=== PATIENT | female | born 1965 | race Caucasian/White ===

== ENCOUNTER 2016-03-23 09:40 | Inpatient (IN) | payer MEDICARE, OTHER ==
--- NOTE | 2016-03-23 06:36 | P.GSHP ---
History of Present Illness H&P Date: 03/23/16 DATE OF SERVICE: 03/23/2016. CHIEF COMPLAINT: Bariatric assessment. HISTORY OF PRESENT ILLNESS: Elliot Swann is a 50-year-old female who initially presents to the bariatric program over a year ago. For her height of 5 foot 5, her ideal body weight is 149 pounds. Her heaviest weight was 270 pounds. Since her band removal, she has moderately regained weight of over 70+ pounds. Today she comes in weighing 257 pounds. She reports developing diabetes type 2. She has completed a psych assessment. She is now 108 pounds overweight. She has only maintained 11% excess weight loss since her adjustable gastric band placement. Now she presents for revision to a gastric bypass. PAST MEDICAL HISTORY: 1. Morbid obesity. 2. Anxiety. 3. Adrenal deficiency. 4. Chronic back pain. 5. Dyslipidemia. 6. Gastroesophageal reflux disease. 7. Chronic obstructive pulmonary disease. 8. Iron deficiency anemia. 9. Osteoarthritis of the lower back. 10. Asthma. 11. Gastric ulcers. 12. Obstructive sleep apnea. PAST SURGICAL HISTORY: 1. Bilateral breast reduction. 2. Complete hysterectomy. 3. Tonsillectomy. 4. Placement of Allergan APS band April 01, 2009. 5. Exploratory laparotomy x2 for bowel obstruction. 6. EGD. 7. Removal of adjustable gastric band, September 2015. MEDICATIONS: 1. Flexeril. 2. Ventolin inhaler. 3. Tylenol. 4. Hydrocodone bitartrate. 5. [employer]. 6. Folic acid. 7. Florinef. 8. Iron. 9. Metformin. 10. Lamictal. 11. Pravachol. 12. Midregion. 13. Omeprazole. 14. Nystatin powder. 15. Abilify. 16. Multivitamin. 17. Levothyroxine. 18. Vitamin D. ALLERGIES: 1. ZANTAC. 2. SHELLFISH. SOCIAL HISTORY: Former tobacco user. No illicit drug use. FAMILY HISTORY: Pertinent for her dad who passed from lung cancer including mesothelioma. Denies any known gastrointestinal malignancies. REVIEW OF SYSTEMS: CONSTITUTIONAL: Carnegie body weight of 149 pounds. She is 107 pounds overweight. Weight gain of 8 pounds in 2 months. Maintained percent excess weight loss 11%. Highest weight of 270 pounds. She has gained a total of 70+ pounds in over 7 months. ENDOCRINE: New diagnosis of diabetes type 2, controlled with metformin. RESPIRATORY: Now has obstructive sleep apnea. CARDIOVASCULAR: Also has hypertension. GASTROINTESTINAL: Reports fatty food intolerance. Intermittent epigastric abdominal pain. HEENT: No troubles with vision or hearing. She does have mild dental decay. MUSCULOSKELETAL: Has severe back pain throughout. She also reports joint pain. NEURO: No reports stroke or seizure disorders. PSYCH: History of bipolar disorder. No recent psychosis. HEMATOLOGIC: Denies any easy bruising or bleeding. She does report chronic iron deficiency anemia since placement of adjustable gastric band. PHYSICAL EXAM: VITAL SIGNS: 98.1, 96, 138/74, 14, 5 foot 5, 257 pounds. Body mass index 42.9. ABDOMEN: Protuberant, soft, nontender. GENERAL: Well-developed female in no acute distress. CHEST: Nonlabored respirations. Equal bilateral excursions. CARDIOVASCULAR: Regular rate and rhythm. HEENT: No scleral icterus. Extraocular movements grossly intact. NECK: Supple without lymphadenopathy. MUSCULOSKELETAL: No clubbing, cyanosis, or edema. NEURO: No focal or lateralizing signs. PSYCH: Appropriate affect. Alert and oriented to person, place and time. LABS: Prior hemoglobin 15.3, glucose of 141, hemoglobin A1C is 7.2%. Phosphorus, AST elevated at 40, ALT elevated at 68, triglycerides elevated at 251, cholesterol elevated at 257, LDL 126, HDL elevated at 81. Vitamin D low at 282. ASSESSMENT: 1. Morbid obesity due to excess calories. 2. History of adjustable gastric band now removed. 3. Severe gastroesophageal reflux disease. 4. Moderate panniculitis with recurrent recalcitrant to treatment. 5. Severe osteoarthritis of the upper including lower back. 6. Iron deficiency anemia of unclear etiology. 7. Personal history of intestinal adhesions. 8. Dietary surveillance and counseling. 9. History of dysphagia to solid foods with history of adjustable gastric band. 10. Body mass index 42.9. 11. Metabolic syndrome. 12. Diabetes type 2, non insulin-dependent. 13. Obstructive sleep apnea. 14. Hypothyroidism. 15. Hypertension. 16. Fatty liver disease, non-alcoholic. 17. Chronic pain syndrome. PLAN: 1. She has completed her psych assessment and demonstrates understanding of the risks of a revisional procedure. 2. With the severity of gastroesophageal reflux disease as well as symptoms would recommend Tabitha-en-Y gastric bypass. 3. She presents having new teeth, which also helps her with her dentition. 4. Benefits and risks of surgical intervention were described at length. She has higher risk for leaks, bleeding including postoperative complications. 5. Inpatient hospitalization over 2 nights anticipated. 6. DVT prophylaxis. 7. Antibiotic prophylaxis. Past Medical History Past Medical History: Asthma, Diabetes Mellitus, GERD/Reflux, Hyperlipidemia, Osteoarthritis (OA) Additional Past Medical History / Comment(s): NIDDM type II, HYPOTENSION, gastric prolapse, chronic back pain, panniculitis. History of Any Multi-Drug Resistant Organisms: None Reported Past Surgical History: Bariatric Surgery, Breast Surgery, Cholecystectomy, Heart Catheterization, Hysterectomy, Tonsillectomy Additional Past Surgical History / Comment(s): Lap Band 2010, bilateral breast reduction, exploratory laparotomy x2 for bowel obstructions, EGD; LAP BAND REMOVAL Past Anesthesia/Blood Transfusion Reactions: Postoperative Nausea & Vomiting ( PONV) Additional Past Anesthesia/Blood Transfusion Reaction / Comment(s): Pt had nausea after one surgery. Past Psychological History: Anxiety, Bipolar, Panic Disorder Additional Psychological History / Comment(s): Pt states her psych medications work very well for her. She lives alone. She is independent. She drives. Smoking Status: Former smoker Past Alcohol Use History: None Reported Additional Past Alcohol Use History / Comment(s): SMOKED FROM [id number]. PPD: 1.5 Past Drug Use History: None Reported - Past Family History Mother Family Medical History: Cancer, Coronary Artery Disease (CAD), Diabetes Mellitus , Hypertension Additional Family Medical History / Comment(s): BREAST Father Family Medical History: Cancer Additional Family Medical History / Comment(s): Father of mesothelioma- lung cancer. Sister(s) Family Medical History: Diabetes Mellitus, Myocardial Infarction ([place]) Medications and Allergies Home Medications Medication Instructions Recorded Confirmed Type ARIPiprazole [Abilify] 15 mg PO DAILY 01/23/15 03/11/16 History Cyclobenzaprine [Flexeril] 10 mg PO TID 01/23/15 03/11/16 History Fludrocortisone [Florinef] 0.1 mg PO QAM 01/23/15 03/11/16 History Midodrine [Proamatine] 5 mg PO TID 01/23/15 03/11/16 History Pravastatin Sodium [Pravachol] 20 mg PO HS 01/23/15 03/11/16 History lamoTRIgine [LaMICtal] 200 mg PO BID 01/23/15 03/11/16 History Ferrous Sulfate [Feosol] 65 mg PO TID 03/28/15 03/11/16 History Multivitamins, Thera [Multivitamin] 1 tab PO DAILY 08/28/15 03/11/16 History Nystatin 100,000 Unit/gm Powd 1 applic TOPICAL BID PRN 09/30/15 03/11/16 History [Mycostatin Powder] Albuterol Inhaler [Ventolin Hfa 1 - 2 puff INHALATION Q6HR PRN 10/30/15 History Inhaler] HYDROcodone/APAP 10-325MG [[employer] 1 tab PO Q6H PRN 10/30/15 03/11/16 History 10-325] Levothyroxine Sodium [Tirosint] 50 mcg PO DAILY 10/30/15 03/11/16 History metFORMIN HCL 1,000 mg PO BID 10/30/15 03/11/16 History Allergies Allergy/AdvReac Type Severity Reaction Status Date / Time horseradish Allergy HEADACHE, Verified 03/11/16 16:03 DIZZINESS ranitidine HCl [From Zantac] Allergy stomach Verified 03/11/16 16:03 ache, headache, and flushing shellfish derived [Shellfish] Allergy Rash/Hives, Verified 03/11/16 16:03 headache, vomiting
[~2016-03-23 09:40] MED LIST: ACETAMINOPHEN IV (For NPO) 1,000 MG in EMPTY BAG 1 BAG IVPB ONE; DEXAMETHASONE SOD PHOSPHATE 10 MG/ML 1 ML VIAL IV ONE; HYDROmorphone 1 MG/ML 1 ML SYRINGE IVP PRN; MIDAZOLAM 2 MG/2 ML VIAL IV PRN; ONDANSETRON 4 MG/2 ML VIAL IVP ONE; SCOPOLAMINE 1.5MG/72HR PATCH TRANSDERM ONE
[2016-03-23] MEDS ORDERED: CHLORHEXIDINE GLUCONATE 15 ML CUP MUCOUS MEM ONE (10:14)
[2016-03-23] MEDS ORDERED: PANTOPRAZOLE 40 MG/10 ML VIAL IV STA (10:14)
[2016-03-23] MEDS ORDERED: BUPIVACAINE LIPOSOME/PF 1.3% 20 ML, BUPIVACAIN-EPI 0.5%-1:200,000 25 ML, SODIUM CHLORID... MISCELLANE ONE ×3 (10:14)
[2016-03-23] MEDS ORDERED: ACETAMINOPHEN IV (For NPO) 1,000 MG in EMPTY BAG 1 BAG IVPB ONE ×2 (10:14→16:00)
[2016-03-23] MEDS ORDERED: ENOXAPARIN 40 MG/0.4 ML SYRINGE SQ STA (10:14)
[2016-03-23 11:02] LABS: Glucose,Whole Blood 101 mg/dL (75-99)
[2016-03-23] MEDS ORDERED: LIDOCAINE 1% 20 ML VIAL (10MG/ML) FOR IV START INTRADERMA ONE (11:03)
[2016-03-23] MEDS: LACTATED RINGERS 1,000 ML IV SCH (11:03)
[2016-03-23] MEDS ORDERED: PROPOFOL 10 MG/ML 20 ML VIAL IV ONE (11:30)
[2016-03-23] MEDS: ceFAZolin 2 GM in SODIUM CHLORIDE 0.9% 100 ML IVPB ONE ×2 (11:30→11:44)
[2016-03-23] MEDS ORDERED: NEOSTIGMINE 1 MG/ML 10 ML VIAL ONE (11:30)
[2016-03-23] MEDS ORDERED: HYDROmorphone (PF) 1 MG/ML ONE (11:30)
[2016-03-23] MEDS ORDERED: MIDAZOLAM 2 MG/2 ML VIAL ONE (11:30)
[2016-03-23] MEDS ORDERED: VECURONIUM 10 MG VIAL IV ONE (11:30)
[2016-03-23] MEDS ORDERED: SUCCINYLCHOLINE CHLORIDE 100 MG/5 ML SYR IV ONE (11:30)
[2016-03-23] MEDS ORDERED: LIDOCAINE 1% INJ 10MG/ML (20 ML MDV) ONE (11:30)
[2016-03-23] MEDS ORDERED: fentaNYL (PF) 50 MCG/ML 2 ML AMP ONE (11:30)
[2016-03-23] MEDS ORDERED: GLYCOPYRROLATE 0.2 MG/ML 2 ML VIAL ONE (11:30)
[2016-03-23] MEDS ORDERED: ePHEDrine 50 MG/ML 1 ML AMP ONE (11:30)
[2016-03-23] MEDS ORDERED: PHENYLEPHRINE-0.9% NACL SYG 1 MG/10 ML SYRINGE ONE (11:30)
[2016-03-23] MEDS ORDERED: LACTATED RINGERS 1,000 ML IV ONE ×2 (12:16→13:24)
[2016-03-23] MEDS ORDERED: HYDROGEN PEROXIDE BOTTLE TOPICAL ONE (14:39)
[2016-03-23] MEDS ORDERED: ONDANSETRON 4 MG/2 ML VIAL IVP PRN (14:59)
[2016-03-23] MEDS ORDERED: diphenhydrAMINE 50 MG/ML 1 ML VIAL IVP PRN (14:59)
[2016-03-23] MEDS ORDERED: SIMETHICONE 40 MG/0.6 ML DROPS 2,000 MG/30 ML BOTTLE PO PRN (14:59)
[2016-03-23] MEDS ORDERED: HYOSCYAMINE ORAL DROPS 1.875 MG/15 ML BOTTLE PO PRN (14:59)
[2016-03-23] MEDS ORDERED: NALOXONE 0.4 MG/ML 1 ML VIAL IV PRN (14:59)
--- NOTE | 2016-03-23 14:59 | P.OP ---
Date of Procedure: 03/23/16 Description of Procedure: DESCRIPTION OF PROCEDURE(S): SURGEON: KIMMIE CORONA MD EXECUTIVE ASSISTANT TO PRESIDENT: MARVA SOLIS. PREOPERATIVE DIAGNOSES: 1. Morbid obesity due to excess calories. 2. History of adjustable gastric band now removed. 3. Severe gastroesophageal reflux disease. 4. Moderate panniculitis with recurrent recalcitrant to treatment. 5. Severe osteoarthritis of the upper including lower back. 6. Iron deficiency anemia of unclear etiology. 7. Personal history of intestinal adhesions. 8. Dietary surveillance and counseling. 9. History of dysphagia to solid foods with history of adjustable gastric band. 10. Body mass index 42.9 down to 40.8. 11. Metabolic syndrome. 12. Diabetes type 2, non insulin-dependent. 13. Obstructive sleep apnea. 14. Hypothyroidism. 15. Hypertension. 16. Fatty liver disease, non-alcoholic. 17. Chronic pain syndrome. POSTOPERATIVE DIAGNOSES: 1. Morbid obesity due to excess calories. 2. History of adjustable gastric band now removed. 3. Severe gastroesophageal reflux disease. 4. Moderate panniculitis with recurrent recalcitrant to treatment. 5. Severe osteoarthritis of the upper including lower back. 6. Iron deficiency anemia of unclear etiology. 7. Personal history of intestinal adhesions. 8. Dietary surveillance and counseling. 9. History of dysphagia to solid foods with history of adjustable gastric band. 10. Body mass index 42.9 down to 40.8. 11. Metabolic syndrome. 12. Diabetes type 2, non insulin-dependent. 13. Obstructive sleep apnea. 14. Hypothyroidism. 15. Hypertension. 16. Fatty liver disease, non-alcoholic. 17. Chronic pain syndrome. 18. Severe lower abdominal/pelvic adhesions greater omentum to abdominal wall from previous hysterectomy. OPERATION: 1. Laparoscopic Tabitha-en-Y gastric bypass, 100 cm antecolic and gastric Tabitha limb , with 25 mm EEA. 2. Intraoperative esophagogastrojejunoscopy. 3. Peritoneal block using Exparel. 4. Application of OptiFoam dressing. 5. Placement of quarter inch [place] drain left upper quadrant incision. 6. Laparoscopic extensive lysis of adhesions over 1 hour. 7. Placement of round #19 Idris-Neves drain left upper quadrant anterior to gastrojejunal anastomosis. ANESTHESIA: 85 mL Exparel with sensorcaine with epinephrine and normal saline mixture. ESTIMATED BLOOD LOSS: 50 mL SPECIMENS REMOVED: None. COMPLICATIONS: None. INDICATIONS: Elliot Swann is a 50-year-old female who initially presents to the bariatric program over a year ago. For her height of 5 foot 5, her ideal body weight is 149 pounds. Her heaviest weight was 270 pounds. Since her band removal in September 2015, she has moderately regained weight of over 70+ pounds. Today she comes in weighing 244 pounds. She has lost 13 pounds in 2 weeks on a low caloric high-protein diet She has completed a psych assessment. She is now 95 pounds overweight. Now she presents for revision to a gastric bypass. All surgical options for morbid obesity had been described using the [place] bariatric surgery collaborative comorbidity resolution including complication risk score. The patient had elected for a gastric bypass with possible sleeve gastrectomy. A second-generation bariatric consent form was described in detail including the possibility of protein malnutrition, leaks, gastrojejunal stricture, venous thrombosis for which she demonstrated understanding. As she is revisional surgery, she presents with higher than stated risks including for leaks and stricture. Benefits and risks of the procedure were described at length. Informed consent was obtained. DESCRIPTION: The patient was brought into the operating room theater. She was placed on a split leg table. Preoperatively she had received Lovenox subcutaneously for DVT prophylaxis. Additionally she had undergone Peridex oral solution as an oral decontaminant. After general induction, the abdomen was prepped and draped in standard sterile fashion. A Bassett catheter was placed. Ioban draping was placed along the abdomen. A 0 10 mm laparoscopic trocar entry was performed along the epigastrium approximately 15 cm distal to the xiphoid process. Her xiphoid to her umbilicus was 29 cm for her height of 5 foot 5 inches. Diagnostic laparoscopy demonstrated no injury to bowel, viscera, or mesentery. The liver surface was unremarkable for fatty liver disease. No injury had occurred to the small bowel or viscera. Moderate greater omentum to lower abdominal wall adhesions were found. At the left upper quadrant 2- 12 mm trocars were placed 1 along the left midclavicular line and another along the anterior axillary line. In a mirror-cancino fashion, 2 - 12 mm trocars were also placed along the right upper abdomen in a mirror-cancino fashion. To address her adhesions, another 12 mm port was placed at the right lower quadrant under direct visualization. Using combination of Harmonic scalpel including blunt dissection with fenestrated graspers, the greater omentum was dissected free from the abdominal wall. Severe pelvic adhesions were identified limiting complete adhesionolysis of the greater omentum into the deep pelvis despite placing the patient in Trendelenburg. Hence, the greater omentum was divided along the lower abdomen to expose the small bowel. The patient was repositioned to supine position with the bed levelled. The freed transverse mesocolon, including the omentum, was reflected over the stomach. The ligament of Treitz was identified and measured 60 cm antegrade. The jejunum was divided at the 60 cm point after using metered graspers for measurement. The biliopancreatic limb was held in place by the certified nursing assistant. The Tabitha limb was then measured 100 cm distally to avoid tension along the proposed gastrojejunal anastomosis. The Tabitha limb was marked using a [place] drain and 2-0 silk on an Endo Stitch along its proximal staple edge. At 100 cm along the anti-mesenteric border of the Tabitha limb, a jejunojejunostomy was proposed whereby enterotomies were created along the biliopancreatic limb including the Tabitha limb using a suction Bovie cautery. The enterotomies were widened using a [place]. A bidirectional fire was performed whereby from the right side a 45 mm machado load was fired. From the left side a separate 45 mm firing had occurred, creating a 90 mm jejunojejunostomy. The defect was then closed using a 60 mm machado load. The jejunojejunostomy was found Hemostatic after using electro-Bovie cautery along the staple edge. Attention was now brought to the creation of the gastrojejunostomy. Placement of a medium size Katie liver retractor was used to elevate the left lobe of the liver for greater visualization of the upper abdomen, particularly the superior pole of the stomach. The patient was then placed in reverse Trendelenburg. The Katie liver retractor was held in place using an iron hr internship. Peritoneal adhesions from her previous adjustable gastric band was found as the superior pole of the anterior stomach was adherent to the undersurface of the left liver. A Sonicision was used to free the adhesions and expose the previous lesser curvature including the gastrohepatic ligament of the stomach which had been obliterated from her previous surgery. The anti-tension stitch of Surgidac from her gastric plication of the adjustable gastric band was identified and divided. Along the lesser curvature of the stomach between the second and third veins, dissection was made along the retrogastric space to allow first firing of the Covidien Tri-Staple purple load. Once adequately mobilized, an initial firing using a 60 mm purple load was performed perpendicular to the lesser curvature of the stomach. To completely divide the pouch from the remnant stomach, three 60 mm and 1 - 45 mm purple loads were fired towards the angle of His. A total of 4 staplers including 3 - 60 mm and 1- 45 mm purple staplers were used to create the gastric pouch. Hemostasis was checked with electro-Bovie cautery along the left lateral edge of the gastric remnant stomach. The spleen was identified and unharmed during this portion of the procedure. The patient was then prepared for placement of a Orvil. The patient was Mallampati 2. A 25-mm Orvil was selected for placement by the nurse commodities manager. The Orvil tubing was placed posterior to the staple line of the gastric pouch and brought out through the left inferior lateral port along the certified nursing assistant port. The Orvil was then carefully and successfully navigated with the help of the nurse commodities manager into the gastric pouch. The sutures were identified and divided. The tubing was from the 25 mm anvil. Using aseptic technique all instruments including port sites were exchanged. As the Orvil had been placed, the blind jejunal limb was brought proximally into the upper abdomen. The transverse mesocolon was cleaved using a Harmonic scalpel. The patient was repositioned in reverse Trendelenburg. No torsion was found upon the Tabitha limb. Some tension was identified as the limb was brought along the upper abdomen. The blind jejunal limb was opened using a cordless Harmonic scalpel. The 25-mm EEA stapler was brought through the left anterior lateral port site from the left side. Please note that the trocars from the Orvil tubing, including the port, were removed to minimize contamination from the oral pete. The EEA stapler was brought through the open jejunal limb and its needle was deployed at the antimesenteric border where the anvil were mated for approximately 1 minute upon firing. The stapler was removed after irrigating the shaft of the instrument with warm normal saline. Donuts were found to be intact but thin on both sides. The open jejunal limb defect was closed using a 60 mm machado load after releasing any tension from the blind jejunal limb. Hemostasis was checked with Sonicision along the blind jejunal limb mesentery. Care was taken to avoid any long blind limb to avoid candycane syndrome. Reinforcement sutures were placed at the 12:00 and 9 o'clock position along the gastrojejunal anastomosis. Closure of the mesenteric defects were performed, initially of the Nino defect using 2-0 silk on an Endo Stitch and a Lapra-Ty and the jejunojejunostomy mesenteric defect. I then went to the head of the bed to perform the esophagogastrojejunoscopy and a leak test. An Olympus gastroscope was passed along the posterior oropharynx which was unremarkable for any injury to the vocal cords. The scope was passed down to the proximal portion of the pouch, whereby no active bleeding was encountered. Excellent visualization of the gastrojejunostomy anastomosis, including the Tabitha limb was encountered with endoscopic image obtained. The anastomosis was found to be patent. The gastrointestinal tract was desufflated. No evidence of intraoperative leak was encountered as the gastric pouch and anastomosis were submerged under normal saline solution. I then went back to the bedside of the patient, whereby with coordinated effort of the certified nursing assistant, irrigation was aspirated from the upper abdominal cavity. Tisseel was placed circumferentially over the anastomosis of the gastrojejunostomy. A round #19 Idris-Neves drain was placed via the most left lateral port and placed anterior to the gastrojejunal anastomosis. The drain was tacked to the skin using 2-0 nylon. The fascial defect corresponding to the EEA stapler device was closed using a Jame Craig and 0 Vicryl with 2 separate sutures. All instruments and pneumoperitoneum were evacuated from the abdominal cavity. The port correlating with the EEA stapler device was copiously irrigated with 3 L of warm normal saline solution and 50 mL of hydrogen peroxide. A quarter inch Bing drain was placed along the EEA stapler site and tacked using 2-0 nylon. The rest of incisions were reapproximated using 3-0 Vicryl for deep subcutaneous tissue and dermis followed by 4-0 Monocryl in a running subcuticular fashion. For local anesthetic, 85 mL of Exparel including Sensorcaine with epinephrine and normal saline mixture was infiltrated along the skin for postop analgesia. Dermabond was applied to the skin. OptiFoam dressing was placed along the EEA stapler site. At the end of the procedure, needle, sponge and instrument count had been verified correct by the vehicle glass technician. She had tolerated the procedure well and was taken to the postanesthesia unit in stable condition. Total skin to skin time was 163 minutes. Intraoperative films were reviewed with the patient's family who were very pleased with the level of care. FINDINGS: 1. Negative intraoperative esophagogastrojejunoscopy leak test. 2. Fatty liver disease with hepatomegaly. 3. All defects including jejunojejunostomy Nino defects were closed. 4. Total of 4 staple loads including 3 - 60 mm and 1 - 45 mm Covidien tri- stapler purple loads used to create the gastric pouch. 5. Gastrojejunostomy created using 25 mm Orvil. 6. Jejunojejunostomy created with 90 mm judy-lumen 7. Xiphoid to umbilical height of 29 cm. 8. Severe pelvic adhesions from previous hysterectomy of greater omentum to abdominal wall, adding additional hour to her case for lysis of adhesions. 9. Tabitha limb of 100 cm performed to minimize mesenteric tension.
[2016-03-23] MEDS ORDERED: NYSTATIN 100,000 UNIT/GM POWD 15 GM TOPICAL PRN (15:03)
[2016-03-23 15:16] LABS: Glucose,Whole Blood 190 mg/dL (75-99)
[2016-03-23 16:37] VITALS: BMI 40.7
[2016-03-23] MEDS: 0.9% NACL WITH KCL 20 MEQ/L 1,000 ML IV SCH (16:39)
[2016-03-23] MEDS: HYDROmorphone 1 MG/ML 1 ML SYRINGE IVP PRN ×2 (16:40→20:10)
[2016-03-23] MEDS: MIDODRINE 5 MG TAB PO SCH (16:42)
[2016-03-23 17:42] LABS: Glucose,Whole Blood 182 mg/dL (75-99)
[2016-03-23] MEDS: INSULIN LISPRO (humaLOG) 300 UNIT/3 ML VIAL SQ SCH (17:50)
[2016-03-23] MEDS: ceFAZolin 2 GM in SODIUM CHLORIDE 0.9% 100 ML IVPB SCH (18:34)
[2016-03-23] MEDS: ALBUTEROL NEBULIZED 2.5 MG/3 ML INHALATION SCH ×2 (18:36→19:24)
[2016-03-23] MEDS: lamoTRIgine 100 MG TAB PO SCH (20:11)
--- NOTE | 2016-03-23 20:49 | P.PN ---
Progress Note - Text Patient seen and evaluated this evening. Care plan described including findings during her surgery. Anticipated disposition after 2 to 3 days hospitalization with AURELIO drains. Possible home health care evaluation may be of benefit.
[2016-03-24] MEDS: INSULIN LISPRO (humaLOG) 300 UNIT/3 ML VIAL SQ SCH ×5 (00:53→21:27)
[2016-03-24] MEDS: 0.9% NACL WITH KCL 20 MEQ/L 1,000 ML IV SCH ×2 (00:54→05:38)
[2016-03-24] MEDS: HYDROmorphone 1 MG/ML 1 ML SYRINGE IVP PRN (01:03)
[2016-03-24 01:10] LABS: Glucose,Whole Blood 195 mg/dL (75-99)
[2016-03-24] MEDS: ceFAZolin 2 GM in SODIUM CHLORIDE 0.9% 100 ML IVPB SCH ×2 (02:48→11:24)
[2016-03-24] MEDS: LEVOTHYROXINE 50 MCG TAB PO SCH (05:39)
[2016-03-24] MEDS: MIDODRINE 5 MG TAB PO SCH ×3 (05:39→17:28)
[2016-03-24 05:46] LABS: Glucose,Whole Blood 144 mg/dL (75-99)
[2016-03-24 07:23] LABS: Basophils % (A) 0 %; CH 28.7; Eosinophils % (A) 0 %; HCT 42.5 % (34.0-46.0); HDW 2.73; HGB 13.5 gm/dL (11.4-16.0); Luc # (Auto) 0.12; Luc % (Auto) 1; Lymphocytes # (A) 1.2 k/uL (1.0-4.8); Lymphocytes % (A) 12 %; MCH 27.9 pg (25.0-35.0); MCHC 31.9 g/dL (31.0-37.0); MCV 87.4 fL (80.0-100.0); Mean Platelet Volume 6.4; Monocytes # (A) 0.6 k/uL (0-1.0); Monocytes % (A) 6 %; Neutrophils # (A) 8.2 k/uL (1.3-7.7); Neutrophils % (A) 80 %; RBC 4.86 m/uL (3.80-5.40); RDW 13.8 % (11.5-15.5); WBC 10.1 k/uL (3.8-10.6); WBC (Perox) 10.41
[2016-03-24 07:42] LABS: Anion Gap 10 mmol/L; Blood Urea Nitrogen 4 mg/dL (7-17); Carbon Dioxide 25 mmol/L (22-30); Chloride 103 mmol/L (98-107); Magnesium 1.8 mg/dL (1.6-2.3); Non-African American GFR(MDRD) >60 (>60 ml/min/1.73 sqM); Phosphorous 2.3 mg/dL (2.5-4.5); Potassium 4.5 mmol/L (3.5-5.1); Sodium 138 mmol/L (137-145)
[2016-03-24] MEDS: PANTOPRAZOLE 40 MG/10 ML VIAL IV SCH (07:55)
[2016-03-24] MEDS: ARIPiprazole 15 MG TAB PO SCH (07:56)
[2016-03-24] MEDS: lamoTRIgine 100 MG TAB PO SCH ×2 (07:56→21:29)
[2016-03-24] MEDS: ENOXAPARIN 40 MG/0.4 ML SYRINGE SQ SCH (07:56)
[2016-03-24] MEDS: HYDROcodone/APAP 15 ML SOLUTION PO PRN ×3 (07:56→21:30)
[2016-03-24] MEDS: FLUDROCORTISONE 0.1 MG TAB PO SCH (07:56)
[2016-03-24] MEDS: ALBUTEROL NEBULIZED 2.5 MG/3 ML INHALATION SCH ×4 (08:04→19:55)
[2016-03-24] MEDS ORDERED: SODIUM CHLORIDE 0.9% 1,000 ML BAG ONE (08:24)
[2016-03-24] MEDS: 1: MVI, ADULT NO.4 WITH VIT K 10 ML, THIAMINE 100 MG, FOLIC ACID 1 MG, POTASSIUM CHLORID IV SCH ×12 (08:24→18:15)
[2016-03-24] MEDS ORDERED: LEVOTHYROXINE SODIUM 50 MCG PO SCH (09:00)
[2016-03-24] MEDS: LACTATED RINGERS 1,000 ML IV SCH (09:32)
[2016-03-24 11:33] LABS: Glucose,Whole Blood 145 mg/dL (75-99)
--- NOTE | 2016-03-24 13:59 | P.PN ---
Subjective 50-year-old female being seen on rounds this morning is sitting up in bed tolerating bariatric clear liquid diet no reports of nausea vomiting states pain medication effective for pain control patient is postop March 23Laparoscopic Rosa-en-Y gastric bypass, 100 cm antecolic and gastric Rosa limb , with 25 mm EEA. Intraoperative esophagogastrojejunoscopy. Due to morbid obesity due to excessive calories. Pa patient states has ambulated once in the hallway this morning Hemoglobin stable at 13.1 white count 10.1 electrolytes all within normal limits hemoglobin A1c 7 Objective - Vital Signs Vital signs: Vital Signs Temp 97.8 F 03/24/16 07:00 Pulse 86 03/24/16 11:57 Resp 18 03/24/16 07:00 BP 148/65 03/24/16 07:00 Pulse Ox 95 03/24/16 11:47 Intake & Output 03/23/16 03/24/16 03/24/16 18:59 06:59 18:59 Intake Total 3050 1950 Output Total 1250 250 Balance 1800 1700 Weight 111.1 kg Intake: IV 3050 Intake, IV Titration 1950 Amount 0.9% NaCl with KCl 20 Meq 1950 /l 1,000 ml @ 150 mls/hr IV .[id number] [facility] Rx#: [id number] Output: Drainage 50 250 Abdomen 50 90 Anterior Abdomen 160 Urine 1150 Estimated Blood Loss 50 Other: Voiding Method Toilet Toilet # Voids 5 2 - Exam Physical exam 50-year-old female sitting up pleasant cooperative oriented 3 appears in no acute distress currently taking a bariatric clear liquid diet and tolerating Lungs essentially clear with adequate air movement on room air sats are 95% Heart S1-S2 audible and regular denying chest pain Abdomen abdominal binder in place Idris-Neves drains in place soft nondistended states urinating no difficulty no reports of nausea vomiting Extremities Venodyne's on to the bilateral lower extremities no edema noted - Labs CBC & Chem 7: 03/24/16 07:00 03/24/16 07:04 Labs: Abnormal Lab Results - Last 24 Hours (Table) 03/23/16 03/23/16 03/24/16 Range/Units 15:12 17:35 00:48 Neutrophils # (1.3-7.7) k/uL BUN (7-17) mg/dL POC Glucose (mg/dL) 190 H 182 H 195 H (75-99) mg/dL Hemoglobin A1c (4.2-6.1) % Phosphorus (2.5-4.5) mg/dL 03/24/16 03/24/16 03/24/16 Range/Units 05:36 07:00 07:04 Neutrophils # 8.2 H (1.3-7.7) k/uL BUN (7-17) mg/dL POC Glucose (mg/dL) 144 H (75-99) mg/dL Hemoglobin A1c 7.0 H (4.2-6.1) % Phosphorus (2.5-4.5) mg/dL 03/24/16 03/24/16 Range/Units 07:04 11:30 Neutrophils # (1.3-7.7) k/uL BUN 4 L (7-17) mg/dL POC Glucose (mg/dL) 145 H (75-99) mg/dL Hemoglobin A1c (4.2-6.1) % Phosphorus 2.3 L (2.5-4.5) mg/dL Assessment and Plan Plan: Impression 1. Morbid obesity due to excess calories. 2. History of adjustable gastric band now removed. 3. Severe gastroesophageal reflux disease. 4. Moderate panniculitis with recurrent recalcitrant to treatment. 5. Severe osteoarthritis of the upper including lower back. 6. Iron deficiency anemia of unclear etiology. 7. Personal history of intestinal adhesions. 8. Dietary surveillance and counseling. 9. History of dysphagia to solid foods with history of adjustable gastric band. 10. Body mass index 42.9 down to 40.8. 11. Metabolic syndrome. 12. Diabetes type 2, non insulin-dependent. 13. Obstructive sleep apnea. 14. Hypothyroidism. 15. Hypertension. 16. Fatty liver disease, non-alcoholic. 17. Chronic pain syndrome. 18. Severe lower abdominal/pelvic adhesions greater omentum to abdominal wall from previous hysterectomy: 19 status post March 23 laparoscopic rosa-en-Y gastric bypass Plan Continue postop surgical care as ordered Increase activity to the level of tolerance encourage the use of the incentive spirometer use every 1 hour while awake DVT and GI prophylaxis pain control The above dictated assessment and findings were discussed with dr Del Valle. Impression and the plan of care have been dictated as directed. Bere Miner nurse practitioner acting as a scribe for Ivon
[2016-03-24 17:04] LABS: Glucose,Whole Blood 169 mg/dL (75-99)
--- NOTE | 2016-03-24 20:54 | P.PN ---
Progress Note - Text Patient seen and evaluated this evening. Pain is well-controlled. No reports of odynophagia with swallowing liquids. She reports previous to her procedure, bladder urgency. This is a pre-existing condition. She was advised to increase oral fluid intake. Anticipated disposition home tomorrow with AURELIO drain.
[2016-03-24 20:57] LABS: Glucose,Whole Blood 138 mg/dL (75-99)
[2016-03-24] MEDS: SODIUM PHOSPHATE 10 MMOL in SODIUM CHLORIDE 0.9% 250 ML IVPB SCH (21:40)
[2016-03-25] MEDS: MAGNESIUM SULFATE-D5W PMX 1 GM in DEXTROSE/WATER 1 100ML.BAG IVPB SCH ×2 (00:35→03:37)
[2016-03-25] MEDS: SODIUM PHOSPHATE 10 MMOL in SODIUM CHLORIDE 0.9% 250 ML IVPB SCH (01:35)
[2016-03-25] MEDS: HYDROcodone/APAP 15 ML SOLUTION PO PRN ×2 (03:40→10:21)
[2016-03-25] MEDS: 1: MVI, ADULT NO.4 WITH VIT K 10 ML, THIAMINE 100 MG, FOLIC ACID 1 MG, POTASSIUM CHLORID IV SCH ×6 (05:22)
[2016-03-25] MEDS: LEVOTHYROXINE 50 MCG TAB PO SCH (05:25)
[2016-03-25] MEDS: MIDODRINE 5 MG TAB PO SCH (05:25)
[2016-03-25] MEDS: LACTATED RINGERS 1,000 ML IV SCH (05:41)
[2016-03-25 07:22] LABS: Glucose,Whole Blood 128 mg/dL (75-99)
[2016-03-25 07:33] LABS: Anion Gap 9 mmol/L; Blood Urea Nitrogen <2 mg/dL (7-17); Calcium 9.1 mg/dL (8.4-10.2); Carbon Dioxide 27 mmol/L (22-30); Chloride 105 mmol/L (98-107); Glucose 143 mg/dL (74-99); Magnesium 2.5 mg/dL (1.6-2.3); Non-African American GFR(MDRD) >60 (>60 ml/min/1.73 sqM); Phosphorous 2.2 mg/dL (2.5-4.5); Potassium 3.8 mmol/L (3.5-5.1); Sodium 141 mmol/L (137-145)
[2016-03-25 07:39] VITALS: BP 144/77; RESP 16; TEMP 98.4
[2016-03-25] MEDS ORDERED: BISACODYL 5 MG TABLET.DR PO PRN (08:00)
[2016-03-25] MEDS: INSULIN LISPRO (humaLOG) 300 UNIT/3 ML VIAL SQ SCH (08:23)
[2016-03-25] MEDS: ALBUTEROL NEBULIZED 2.5 MG/3 ML INHALATION SCH ×2 (08:46→12:05)
[2016-03-25 08:58] VITALS: PULSE 96
[2016-03-25] MEDS ORDERED: SODIUM PHOSPHATE 10 MMOL in SODIUM CHLORIDE 0.9% 250 ML IVPB SCH (09:00)
[2016-03-25] MEDS: ENOXAPARIN 40 MG/0.4 ML SYRINGE SQ SCH (09:38)
[2016-03-25] MEDS: PANTOPRAZOLE 40 MG/10 ML VIAL IV SCH (09:38)
[2016-03-25] MEDS: FLUDROCORTISONE 0.1 MG TAB PO SCH (09:39)
[2016-03-25] MEDS: lamoTRIgine 100 MG TAB PO SCH (09:39)
[2016-03-25] MEDS: ARIPiprazole 15 MG TAB PO SCH (09:39)
--- NOTE | 2016-03-25 10:52 | P.PN ---
Subjective Principal diagnosis: Morbid obesity The patient is a 50-year-old female status post revision of adjustable gastric band to gastric bypass. Postoperatively, she has been doing extremely well. She is tolerating liquids. She is ambulating. She has pre-existing bladder urgency. She is taking moderate oral intake. No reports of abdominal pain. No reports of fevers or chills. Objective - Vital Signs Vital signs: Vital Signs Temp 98.4 F 03/25/16 07:00 Pulse 96 03/25/16 08:57 Resp 16 03/25/16 07:00 BP 144/77 03/25/16 07:00 Pulse Ox 94 L 03/25/16 07:00 Intake & Output 03/24/16 03/25/16 03/25/16 18:59 06:59 18:59 Intake Total 1600 580 Output Total 30 Balance 1600 550 Weight 111.1 kg 111.1 kg Intake: IV 800 Mvi, Adult No.4 with Vit 800 K 10 ml Thiamine 100 mg Folic Acid 1 mg Potassium Chloride 20 meq In Sodium Chloride 0.9% 1, 000 ml @ 100 mls/hr IV . BY DURATION SHERI Rx#: [id number] Intake, IV Titration 400 Amount 0.9% NaCl with KCl 20 Meq 400 /l 1,000 ml @ 100 mls/hr IV .BY DURATION SHERI Rx#: [id number] Oral 800 180 Output: Drainage 30 Anterior Abdomen 30 Other: Voiding Method Toilet # Voids 2 2 1 - Exam GENERAL: Well developed and in no acute distress. Pleasant. HEENT: No sclera icterus. Extraocular movements grossly intact. Moist buccal mucosa. Head is atraumatic, normocephalic. Hears conversational speech. No nasal drainage. NECK: Supple without lymphadenopathy. CHEST: Non-labored respirations and equal bilateral excursions. CARDIOVASCULAR: Regular rate and rhythm. Palpable 2+ radial pulses. ABDOMEN: Soft. Nondistended. All stab incisions clean dry and intact. No signs of infection or seroma. AURELIO serosanguineous. Optifoam dressing intact. MUSCULOSKELETAL: No clubbing, cyanosis or edema. NEUROLOGIC: No focal or lateralizing signs. PSYCH: Appropriate affect. Alert and oriented to person, place and time. - Labs CBC & Chem 7: 03/24/16 07:00 03/25/16 06:52 Labs: Abnormal Lab Results - Last 24 Hours (Table) 03/24/16 03/24/16 03/24/16 Range/Units 07:04 11:30 16:30 BUN (7-17) mg/dL Glucose (74-99) mg/dL POC Glucose (mg/dL) 145 H 169 H (75-99) mg/dL Hemoglobin A1c 7.0 H (4.2-6.1) % Phosphorus (2.5-4.5) mg/dL Magnesium (1.6-2.3) mg/dL 03/24/16 03/25/16 03/25/16 Range/Units 20:56 06:52 07:12 BUN <2 L (7-17) mg/dL Glucose 143 H (74-99) mg/dL POC Glucose (mg/dL) 138 H 128 H (75-99) mg/dL Hemoglobin A1c (4.2-6.1) % Phosphorus 2.2 L (2.5-4.5) mg/dL Magnesium 2.5 H (1.6-2.3) mg/dL Assessment and Plan (1) BMI 40.0-44.9, adult Status: Chronic (2) Morbid obesity due to excess calories Status: Chronic (3) Type 2 diabetes mellitus without complications Status: Chronic (4) Fatty liver disease, nonalcoholic Status: Chronic (5) Hepatomegaly Status: Chronic (6) Peritoneal adhesion Status: Chronic (7) Adrenal insufficiency Status: Chronic (8) Bipolar 1 disorder, depressed Status: Chronic (9) Chronic pain Status: Chronic (10) Complication of gastric band procedure Status: Chronic (11) Morbid (severe) obesity due to excess calories Status: Chronic (12) Status post gastric bypass for obesity Status: Acute (13) Irritable bladder Status: Chronic Plan: 1. She has done extremely well with tolerating oral liquids and ambulation. 2. Magnesium including phosphate has been placed. 3. AURELIO drains to be discontinued in the office in 1 week. 4. Discharge instructions reviewed. Patient verbalized understanding. 5. Bariatric clear liquid diet today. Start of protein shake by Wednesday, in 3 days. 6. Medical reconciliation also completed.
--- NOTE | 2016-03-25 10:54 | P.DS ---
Providers Date of admission: 03/23/16 09:40 Expected date of discharge: 03/25/16 Attending physician: Rupa Del Valle Primary care physician: Stated None - Discharge Diagnosis(es) (1) BMI 40.0-44.9, adult Current Visit: Yes Status: Chronic (2) Morbid obesity due to excess calories Current Visit: Yes Status: Chronic (3) Type 2 diabetes mellitus without complications Current Visit: Yes Status: Chronic (4) Fatty liver disease, nonalcoholic Current Visit: Yes Status: Chronic (5) Hepatomegaly Current Visit: Yes Status: Chronic (6) Peritoneal adhesion Current Visit: Yes Status: Chronic (7) Adrenal insufficiency Current Visit: Yes Status: Chronic (8) Bipolar 1 disorder, depressed Current Visit: No Status: Chronic (9) Chronic pain Current Visit: No Status: Chronic (10) Complication of gastric band procedure Current Visit: No Status: Chronic (11) Morbid (severe) obesity due to excess calories Current Visit: No Status: Chronic (12) Status post gastric bypass for obesity Current Visit: Yes Status: Acute Hospital Course: POSTOPERATIVE DIAGNOSES: 1. Morbid obesity due to excess calories. 2. History of adjustable gastric band now removed. 3. Severe gastroesophageal reflux disease. 4. Moderate panniculitis with recurrent recalcitrant to treatment. 5. Severe osteoarthritis of the upper including lower back. 6. Iron deficiency anemia of unclear etiology. 7. Personal history of intestinal adhesions. 8. Dietary surveillance and counseling. 9. History of dysphagia to solid foods with history of adjustable gastric band. 10. Body mass index 42.9 down to 40.8. 11. Metabolic syndrome. 12. Diabetes type 2, non insulin-dependent. 13. Obstructive sleep apnea. 14. Hypothyroidism. 15. Hypertension. 16. Fatty liver disease, non-alcoholic. 17. Chronic pain syndrome. 18. Severe lower abdominal/pelvic adhesions greater omentum to abdominal wall from previous hysterectomy. COURSE: Elliot Swann is a 50-year-old female who initially presents to the bariatric program over a year ago. For her height of 5 foot 5, her ideal body weight is 149 pounds. Her heaviest weight was 270 pounds. Since her band removal in September 2015, she has moderately regained weight of over 70+ pounds. Today she comes in weighing 244 pounds. She has lost 13 pounds in 2 weeks on a low caloric high-protein diet She has completed a psych assessment. She is now 95 pounds overweight. Now she presents for revision to a gastric bypass. All surgical options for morbid obesity had been described using the [place] bariatric surgery collaborative comorbidity resolution including complication risk score. The patient had elected for a gastric bypass with possible sleeve gastrectomy. A second-generation bariatric consent form was described in detail including the possibility of protein malnutrition, leaks, gastrojejunal stricture, venous thrombosis for which she demonstrated understanding. As she is undergoing revisional surgery, she presents with higher than stated risks including for leaks and stricture. Benefits and risks of the procedure were described at length. Postoperatively, dietary education was reviewed. AURELIO teaching was also reviewed. She was tolerating diet. She denies any nausea or vomiting. Prior to discharge, she was stable. Medication adjustments were performed. Procedures: OPERATION: 1. Laparoscopic Tabitha-en-Y gastric bypass, 100 cm antecolic and gastric Tabitha limb , with 25 mm EEA. 2. Intraoperative esophagogastrojejunoscopy. 3. Peritoneal block using Exparel. 4. Application of OptiFoam dressing. 5. Placement of quarter inch [place] drain left upper quadrant incision. 6. Laparoscopic extensive lysis of adhesions over 1 hour. 7. Placement of round #19 Idris-Neves drain left upper quadrant anterior to gastrojejunal anastomosis. Patient Condition at Discharge: Stable Plan - Discharge Summary New Discharge Prescriptions: HYDROcodone/APAP [[place] Elixir 7.5-325Mg/15Ml] 15 ml PO Q4HR PRN #480 ml PRN Reason: Pain Omeprazole 40 mg PO DAILY #90 capsule.dr Discharge Medication List ARIPiprazole [Abilify] 15 mg PO DAILY 01/23/15 [History] Cyclobenzaprine [Flexeril] 10 mg PO TID 01/23/15 [History] Fludrocortisone [Florinef] 0.1 mg PO QAM 01/23/15 [History] Midodrine [Proamatine] 5 mg PO TID 01/23/15 [History] lamoTRIgine [LaMICtal] 200 mg PO BID 01/23/15 [History] Nystatin 100,000 Unit/gm Powd [Mycostatin Powder] 1 applic TOPICAL BID PRN 09/29 [History] Albuterol Inhaler [Ventolin Hfa Inhaler] 1 - 2 puff INHALATION RT-Q6H PRN [History] HYDROcodone/APAP 10-325MG [[place] 10-325] 1 tab PO Q6H PRN 10/30/15 [History] HYDROcodone/APAP [[place] Elixir 7.5-325Mg/15Ml] 15 ml PO Q4HR PRN #480 ml [Rx] Levothyroxine Sodium [Tirosint] 50 mcg PO DAILY 03/23/16 [History] Omeprazole 40 mg PO DAILY #90 capsule. 03/23/16 [Rx] Follow up Appointment(s)/Referral(s): Rupa Del Valle MD [STAFF PHYSICIAN] - 03/30/16 9:30 am (Bariatric Center) Patient Instructions/Handouts: Omeprazole (By mouth), Nutrition after Bariatric Surgery (GEN), Tabitha-en-Y Gastric Bypass (DC) Activity/Diet/Wound Care/Special Instructions: [facility] [phone] Discharge Disposition: HOME WITH HOME HEALTH SERVICES
== END 2016-03-25 12:13 | disposition home health service (06) | DRG 620 ==
LOC: 2ORWHC 09:40 → 3SUR 14:55
PROVIDERS: ADMIT Surgery Plastic and Reconstructive Surgery; ATTEND Surgery Plastic and Reconstructive Surgery
PROC: 0DNW4ZZ Release Peritoneum, Percutaneous Endoscopic Approach (ICD-10-PCS; 2016-03-23)
PROC: 0DJ08ZZ Inspection of Upper Intestinal Tract, Via Natural or Artificial Opening Endoscopic (ICD-10-PCS; 2016-03-23)
PROC: 0D164ZA Bypass Stomach to Jejunum, Percutaneous Endoscopic Approach (ICD-10-PCS; principal; 2016-03-23 11:30)
DX: E66.01 Morbid (severe) obesity due to excess calories (principal); E27.40 Unspecified adrenocortical insufficiency; E88.81 Metabolic syndrome and other insulin resistance; K76.0 Fatty (change of) liver, not elsewhere classified; D50.9 Iron deficiency anemia, unspecified; E11.9 Type 2 diabetes mellitus without complications; I10 Essential (primary) hypertension; N32.89 Other specified disorders of bladder; E03.9 Hypothyroidism, unspecified; E78.5 Hyperlipidemia, unspecified; F32.9 Major depressive disorder, single episode, unspecified; F41.0 Panic disorder [episodic paroxysmal anxiety]; G47.33 Obstructive sleep apnea (adult) (pediatric); G89.4 Chronic pain syndrome; J44.9 Chronic obstructive pulmonary disease, unspecified; J45.909 Unspecified asthma, uncomplicated; K21.9 Gastro-esophageal reflux disease without esophagitis; K66.0 Peritoneal adhesions (postprocedural) (postinfection); M47.9 Spondylosis, unspecified; M79.3 Panniculitis, unspecified; M54.9 Dorsalgia, unspecified; R16.0 Hepatomegaly, not elsewhere classified; Z68.41 Body mass index [BMI] 40.0-44.9, adult; Z87.891 Personal history of nicotine dependence; Z79.84 Long term (current) use of oral hypoglycemic drugs; Z79.899 Other long term (current) drug therapy; Z88.8 Allergy status to other drugs, medicaments and biological substances; Z98.84 Bariatric surgery status; Z82.49 Family history of ischemic heart disease and other diseases of the circulatory system
CPT/HCPCS: 80048; 80051; 82310; 82565; 83036; 83735; 84100; 84520; 85025; 94640; 94760

== ENCOUNTER → 2016-03-30 | Outpatient (CLI) | payer MEDICARE, OTHER ==
[2016-03-30 11:47] VITALS: BMI 41.1
[2016-03-30 16:32] VITALS: BP 135/73; PULSE 96; RESP 14; TEMP 98.3
--- NOTE | 2016-04-05 16:15 | P.PN ---
Progress Note - Text DATE OF SERVICE: 03/30/2016 CHIEF COMPLAINT: Status post gastric bypass. HISTORY OF PRESENT ILLNESS: Elliot Swann is a 51-year-old female who is status post Tabitha-en-Y gastric bypass on 03/23/2016. Her history is significant for a previous adjustable gastric band with intolerance. Her gastric band was previously removed over 3 months ago. As a result, she had moderate weight regain. Her highest weight was 278 pounds. Prior to surgery she was approximately 250 pounds. Today she comes in weighing 246 pounds. Total maintained weight loss from her highest is 32 pounds. Her ideal body weight for her 5-foot 5-inch frame is 149 pounds. She has lost 10 pounds in approximately a month. Body mass index has been reduced from 46.4 to 41.1. No reports of fevers or chills. No reports of troubles with swallowing. She denies dysphagia. PHYSICAL EXAM: VITAL SIGNS: 98.3, 96, 14, 135/73, 5 feet 5 inches. Weight 246 pounds. Body mass index 41.1. GENERAL: Well-developed female in no acute distress. ABDOMEN: All drains were discontinued. AURELIO was serosanguineous. Along the left upper flank an abrasion. The skin was cleansed. No signs of cellulitis or infection. CHEST: Nonlabored respirations. Equal bilateral excursions. CARDIOVASCULAR: Regular rate and rhythm. HEENT: No scleral icterus. Extraocular movements grossly intact. NECK: Supple without lymphadenopathy. MUSCULOSKELETAL: No clubbing, cyanosis, or edema. NEURO: No focal or lateralizing signs. PSYCH: Appropriate affect. Alert and oriented to person, place and time. ASSESSMENT: 1. Morbid obesity due to excess calories. 2. History of adjustable gastric band now removed. 3. Severe gastroesophageal reflux disease. 4. Moderate panniculitis with recurrent recalcitrant to treatment. 5. Severe osteoarthritis of the upper including lower back. 6. Iron deficiency anemia of unclear etiology. 7. Personal history of intestinal adhesions. 8. Dietary surveillance and counseling. 9. History of dysphagia to solid foods with history of adjustable gastric band. 10. Body mass index reduced from 46.4 to 41.1. 11. Metabolic syndrome. 12. Diabetes type 2, non insulin-dependent. 13. Obstructive sleep apnea. 14. Hypothyroidism. 15. Hypertension. 16. Fatty liver disease, non-alcoholic. 17. Chronic pain syndrome. 18. Status post Tabitha-en-Y gastric bypass. PLAN: 1. She may start her protein shake diet. 2. As she is a revision from an adjustable gastric band to Tabitha-en-Y gastric bypass. Follow up in 4 days. 3. Goal protein intake of 75 grams advised.
== END | disposition home or self-care (01) ==
LOC: BARWHC3 09:29
PROVIDERS: ATTEND Surgery Plastic and Reconstructive Surgery
DX: Z48.815 Encounter for surgical aftercare following surgery on the digestive system (principal); Z71.3 Dietary counseling and surveillance; E66.01 Morbid (severe) obesity due to excess calories; Z68.41 Body mass index [BMI] 40.0-44.9, adult; Z98.84 Bariatric surgery status; K21.9 Gastro-esophageal reflux disease without esophagitis; M79.3 Panniculitis, unspecified; M47.896 Other spondylosis, lumbar region; M47.892 Other spondylosis, cervical region; D50.9 Iron deficiency anemia, unspecified; Z87.898 Personal history of other specified conditions; R13.10 Dysphagia, unspecified; E88.81 Metabolic syndrome and other insulin resistance; E11.9 Type 2 diabetes mellitus without complications; G47.33 Obstructive sleep apnea (adult) (pediatric); E03.9 Hypothyroidism, unspecified; I10 Essential (primary) hypertension; K76.0 Fatty (change of) liver, not elsewhere classified; G89.4 Chronic pain syndrome
CPT/HCPCS: 97803; G0463; 99211

== ENCOUNTER → 2016-04-02 | Outpatient (CLI) | payer MEDICARE, OTHER ==
[2016-04-02 09:59] VITALS: BP 118/57; PULSE 71; RESP 16; TEMP 98; BMI 40.5
--- NOTE | 2016-04-05 18:32 | P.PN ---
Progress Note - Text DATE OF SERVICE: 04/02/2016 CHIEF COMPLAINT: Follow up gastric bypass. HISTORY OF PRESENT ILLNESS: Elliot Swann is a 51-year-old female who is status post Tabitha-en-Y gastric bypass on 03/23/2016. She is almost 10 days out. She has a pertinent history of a previous adjustable gastric band now with moderate weight regain. At her height of 5 feet 5 inches, her ideal body weight is 149 pounds. Highest weight was 278 pounds. Today she comes in weighing 243 pounds. She has now maintained a lifetime of 35 pounds weight loss. Since her visit less than a week ago, she has lost 14 pounds. Percent excess weight loss is 27%. Body mass index is reduced from 46.4 down to 40.5. Total BMI point reduction is 6. Her blood sugars are averaging 140. She has been discontinued off her oral hypoglycemics for diabetes. Overall she feels extremely well. No reports of fevers or chills, nausea and vomiting. No reports of infection from her wounds. PHYSICAL EXAM: VITAL SIGNS: 98.0, 71, 16, 118/57; 5 foot 5 inches, 243 pounds. Body mass index of 40.5. ABDOMEN: Soft, nontender, nondistended. No signs of infection or cellulitis along her wounds. Incision of the left upper quadrant is granulating. Minimal serous drainage. MUSCULOSKELETAL: No clubbing, cyanosis or edema. GENERAL: Well-developed female in no acute distress. CHEST: Nonlabored respirations. Equal bilateral excursions. CARDIOVASCULAR: Regular rate and rhythm. HEENT: No scleral icterus. Extraocular movements grossly intact. NECK: Supple without lymphadenopathy. NEURO: No focal or lateralizing signs. PSYCH: Appropriate affect. Alert and oriented to person, place and time. ASSESSMENT: 1. Morbid obesity due to excess calories. 2. Body mass index reduced from 46.4 down to 40.5. 3. Status post Tabitha-en-Y gastric bypass. 4. Dietary surveillance and counseling. 5. Diabetes type 2, resolved. 6. Hypertensive heart disease, resolved. PLAN: 1. She is doing fairly well. Recommend followup in 2 weeks. 2. She is eager to travel to [place]. This is now on hold until she has complete healing for at least 4 to 6 weeks from her procedure. 3. She may start her protein shakes.
== END | disposition home or self-care (01) ==
LOC: BARWHC3 09:05
PROVIDERS: ATTEND Surgery Plastic and Reconstructive Surgery
DX: Z48.815 Encounter for surgical aftercare following surgery on the digestive system (principal); Z98.84 Bariatric surgery status; E66.01 Morbid (severe) obesity due to excess calories; Z68.42 Body mass index [BMI] 45.0-49.9, adult
CPT/HCPCS: 99211

== ENCOUNTER → 2016-04-16 | Outpatient (CLI) | payer MEDICARE, OTHER ==
[2016-04-16 09:51] VITALS: BP 130/71; PULSE 75; RESP 16; TEMP 98.2; BMI 39.2
[2016-04-16 11:17] LABS: CH 27.6; CHCM 31.4; HCT 46.5 % (34.0-46.0); HDW 2.81; HGB 14.3 gm/dL (11.4-16.0); Hypochromasia Slight; MCH 27.2 pg (25.0-35.0); MCHC 30.8 g/dL (31.0-37.0); MCV 88.1 fL (80.0-100.0); Mean Platelet Volume 6.7; RBC 5.27 m/uL (3.80-5.40); RDW 13.9 % (11.5-15.5); WBC 4.2 k/uL (3.8-10.6)
[2016-04-16 11:23] LABS: Partial Thromboplastin Time 23.8 sec (22.0-30.0); Prothrombin Time 10.6 sec (9.0-12.0)
[2016-04-16 11:24] LABS: ALT 44 U/L (9-52); AST 35 U/L (14-36); Alkaline Phosphatase 76 U/L (38-126); Anion Gap 10 mmol/L; Blood Urea Nitrogen 13 mg/dL (7-17); Carbon Dioxide 27 mmol/L (22-30); Chloride 105 mmol/L (98-107); Cholesterol 161 mg/dL (<200); Glucose 121 mg/dL (74-99); HDL Cholesterol 59 mg/dL (40-60); Iron 64 ug/dL (37-170); Magnesium 2.1 mg/dL (1.6-2.3); Non-African American GFR(MDRD) >60 (>60 ml/min/1.73 sqM); Phosphorous 3.8 mg/dL (2.5-4.5); Potassium 4.9 mmol/L (3.5-5.1); Sodium 142 mmol/L (137-145); Total Bilirubin 0.6 mg/dL (0.2-1.3); Total Protein 6.8 g/dL (6.3-8.2); Triglycerides 132 mg/dL (<150)
[2016-04-16 11:33] LABS: % Iron Saturation 17.6 % (20-50); Prealbumin 23 mg/dL (18-36); Total Iron Binding Capacity 363 ug/dL (265-497)
[2016-04-16 12:29] LABS: Vitamin B12 710 pg/mL (239-931)
[2016-04-16 13:18] LABS: Hemoglobin A1C 6.8 % (4.2-6.1)
[2016-04-22 17:43] LABS: Selenium 186 mcg/L (63-160)
--- NOTE | 2016-05-17 18:11 | P.PN ---
Progress Note - Text DATE OF SERVICE: 04/16/2016 CHIEF COMPLAINT: Follow-up gastric bypass. HISTORY OF PRESENT ILLNESS: Elliot Swann is a 51-year-old female who is status post Tabitha-en-Y gastric bypass on 03/23/2016. She is approximately 3 weeks out. Her history is significant for previous band removal 08/30/2015. Separately since her gastric bypass, her gastroesophageal reflux disease is completely resolved. She denies dysphagia to solid foods. No reports of fever or chills. She is moving around. Her personal goal is to move to [place]. At her height of 5 feet 5 inches, her ideal body weight is 149 pounds. Her original weight was 278 pounds. Today she comes in weighing 235 pounds. Her lifetime weight loss is 43 pounds. She has lost another 21 pounds in approximately a month. Percent excess weight loss lifetime is 33%. Body mass index is reduced from 46.4 down to 39.2. Total BMI point reduction is 7.1. Separately her diabetes is also resolved. PHYSICAL EXAM: VITAL SIGNS: 98.2, 75, 16, 130/71, 5 feet, 5 inches, 235 pounds. Body mass index of 39.2. ABDOMEN: No palpable incisional hernias. Wounds granulated. MUSCULOSKELETAL: No clubbing or cyanosis. GENERAL: Well-developed female in no acute distress. CHEST: Nonlabored respirations. Equal bilateral excursions. CARDIOVASCULAR: Regular rate and rhythm. HEENT: No scleral icterus. Extraocular movements grossly intact. NECK: Supple without lymphadenopathy. NEURO: No focal or lateralizing signs. PSYCH: Appropriate affect. Alert and oriented to person, place and time. LABS: Hemoglobin of 14.3, normal. Hematocrit elevated at 46.5. Glucose elevated at 121. Hemoglobin A1c improved from 7.2 down to 6.8. Percent saturation low at 17.6. Vitamin D low at 27.3. TSH is suppressed at 0.46 down from 2.1. The rest of trace elements within normal limits. ASSESSMENT: 1. Morbid obesity due to excess calories. 2. Body mass index reduced from 46.4 down to 39.2. 3. Status post Tabitha-en-Y gastric bypass. 4. Panniculitis, recurrent. PLAN: 1. I have recommended holding off leaving the state for at least 6 weeks to ensure complete recovery. 2. On exam, she does have panniculitis, which nystatin powder is recommended. 3. She may start her multivitamins 4 weeks postop; otherwise starting April 22. 4. She has home health care which she has done fairly well with. 5. We have asked her to call back sooner if she has any problems with dysphagia, fevers or chills. 6. Recommend followup in approximately 3 to 4 weeks.
== END | disposition home or self-care (01) ==
LOC: BARWHC3 09:23
PROVIDERS: ATTEND Surgery Plastic and Reconstructive Surgery
DX: Z48.815 Encounter for surgical aftercare following surgery on the digestive system (principal); Z98.84 Bariatric surgery status; Z71.3 Dietary counseling and surveillance; E66.01 Morbid (severe) obesity due to excess calories; Z68.39 Body mass index [BMI] 39.0-39.9, adult; E21.1 Secondary hyperparathyroidism, not elsewhere classified; E89.1 Postprocedural hypoinsulinemia; D50.8 Other iron deficiency anemias; E44.0 Moderate protein-calorie malnutrition; E55.9 Vitamin D deficiency, unspecified; K74.1 Hepatic sclerosis; N19 Unspecified kidney failure; K50.90 Crohn's disease, unspecified, without complications; M79.3 Panniculitis, unspecified
CPT/HCPCS: 84255; 84134; 84425; 80061; 80053; 82607; 82728; 83036; 82525; 82746; 83540; 83550; 83735; 84100; 84443; 84590; 84630; 85027; 85610; 85730; 82306; 83970; 97803; G0463; 99211

== ENCOUNTER → 2016-05-14 | Outpatient (CLI) | payer MEDICARE, OTHER ==
[2016-05-14 09:36] VITALS: BP 122/63; PULSE 76; RESP 14; TEMP 97.8
[2016-05-14 09:37] VITALS: BMI 38.6
[2016-05-14 12:24] LABS: CH 28.2; CHCM 31.4; HCT 46.9 % (34.0-46.0); HDW 2.64; HGB 14.7 gm/dL (11.4-16.0); Hypochromasia Slight; MCH 28.3 pg (25.0-35.0); MCHC 31.4 g/dL (31.0-37.0); MCV 90.3 fL (80.0-100.0); Mean Platelet Volume 7.5; RBC 5.19 m/uL (3.80-5.40); RDW 14.7 % (11.5-15.5); WBC 5.7 k/uL (3.8-10.6)
[2016-05-14 12:35] LABS: Partial Thromboplastin Time 23.8 sec (22.0-30.0); Prothrombin Time 10.4 sec (9.0-12.0)
[2016-05-14 12:40] LABS: ALT 51 U/L (9-52); AST 56 U/L (14-36); Alkaline Phosphatase 107 U/L (38-126); Anion Gap 11 mmol/L; Blood Urea Nitrogen 11 mg/dL (7-17); Calcium 10.3 mg/dL (8.4-10.2); Carbon Dioxide 30 mmol/L (22-30); Chloride 104 mmol/L (98-107); Cholesterol 182 mg/dL (<200); Glucose 103 mg/dL (74-99); HDL Cholesterol 71 mg/dL (40-60); Iron 59 ug/dL (37-170); Non-African American GFR(MDRD) >60 (>60 ml/min/1.73 sqM); Phosphorous 4.3 mg/dL (2.5-4.5); Potassium 4.9 mmol/L (3.5-5.1); Sodium 145 mmol/L (137-145); Total Bilirubin 0.7 mg/dL (0.2-1.3); Total Protein 7.2 g/dL (6.3-8.2); Triglycerides 184 mg/dL (<150)
[2016-05-14 12:50] LABS: % Iron Saturation 16.7 % (20-50); Prealbumin 24 mg/dL (18-36); Total Iron Binding Capacity 353 ug/dL (265-497)
[2016-05-14 13:27] LABS: Hemoglobin A1C 6.3 % (4.2-6.1)
[2016-05-14 13:46] LABS: Vitamin B12 621 pg/mL (239-931)
[2016-05-30 13:03] LABS: Selenium 131 mcg/L (63-160)
--- NOTE | 2016-06-11 21:15 | P.PN ---
Progress Note - Text DATE OF SERVICE: 05/14/2016 CHIEF COMPLAINT: Follow-up gastric bypass. HISTORY OF PRESENT ILLNESS: Elliot Swann is a 51-year-old female status post revision from adjustable gastric Tabitha-en-Y gastric bypass on 03/23/2016. Her lifetime heaviest weight was 270 pounds. Today she comes in weighing 232 pounds. Her ideal body weight for her 5 foot 5 inch frame is 149 pounds. She has lost 46 pounds. Percent excess weight loss is 36%. Body mass index is reduced from 46.4 down to 38.6. BMI point reduction is 7.7. She is still 83 pounds overweight. She denies any gastroesophageal reflux disease. She reports panniculitis of her abdomen. Incidentally, she is moving to [place]. She is off all medications for diabetes. She is tolerating textured foods. Separately, she reports eating under 70 grams of protein as requested. PHYSICAL EXAM: VITAL SIGNS: 97.6, 14, 122/63; 5 feet 5 inches and 232 pounds. Body mass 38.6. ABDOMEN: Soft, nondistended. No palpable incisional hernias. No signs of cellulitis and infection. Pannus was consistent with panniculitis. Pannus extends over pubis by over 5 cm. MUSCULOSKELETAL: No clubbing or cyanosis. GENERAL: Well-developed female in no acute distress. CHEST: Nonlabored respirations. Equal bilateral excursions. CARDIOVASCULAR: Regular rate and rhythm. HEENT: No scleral icterus. Extraocular movements grossly intact. NECK: Supple without lymphadenopathy. NEURO: No focal or lateralizing signs. PSYCH: Appropriate affect. Alert and oriented to person, place and time. LABS: Labs were reviewed. White blood cell count was normal at 5.7. Glucose elevated at 103. Hemoglobin A1c improved from 7.0 down to 6.3. Calcium elevated at 10.3 from previous of 10. Percent iron saturation is low 16.7. AST elevated at 56. Triglycerides elevated at 184. Triglycerides have improved from 251. HDL elevated at 71. Trace elements within normal limits. ASSESSMENT: 1. Morbid obesity due to excess calories. 2. Body mass index reduced from 46.4 down to 38.6. 3. Status post Tabitha-en-Y gastric bypass. 4. Diabetes type 2, improved. 5. Elevated calcium level. 6. Hypertriglyceridemia. 7. Dietary surveillance and counseling. 8. Medical noncompliance after bariatric surgery. PLAN: 1. I stressed that her protein intake needs to average over 75 grams as she still is in treatment from her operation. 2. We sat together and reviewed [facility] from [employer] bariatric surgery web site for hospitals that perform her gastric bypass and willing to follow patients. Several list of providers were reviewed and selected. 3. She has completed her bariatric metabolic panel. 4. Recommended close evaluation after transfer of care to an outside facility. 5. [facility] [place] follow-up for May 2016; otherwise, no later than July 2016.
== END | disposition home or self-care (01) ==
LOC: BARWHC3 08:47
PROVIDERS: ATTEND Surgery Plastic and Reconstructive Surgery
DX: Z48.815 Encounter for surgical aftercare following surgery on the digestive system (principal); E66.01 Morbid (severe) obesity due to excess calories; Z68.38 Body mass index [BMI] 38.0-38.9, adult; Z71.3 Dietary counseling and surveillance; E21.1 Secondary hyperparathyroidism, not elsewhere classified; E89.1 Postprocedural hypoinsulinemia; D50.8 Other iron deficiency anemias; E44.0 Moderate protein-calorie malnutrition; E55.9 Vitamin D deficiency, unspecified; K74.1 Hepatic sclerosis; N19 Unspecified kidney failure; K50.90 Crohn's disease, unspecified, without complications; Z98.84 Bariatric surgery status
CPT/HCPCS: 84255; 84134; 84425; 80061; 80053; 82607; 82728; 83036; 82525; 82746; 83540; 83550; 83735; 84100; 84443; 84590; 84630; 85027; 85610; 85730; 82306; 83970; 97803; G0463; 99211